=== PATIENT | female | born 1950 | race Hispanic/Latino ===

== ENCOUNTER 2017-09-21 06:47 | Day surgery (SDC) | payer MEDICARE ==
[2017-09-21] MEDS ORDERED: ZOFRAN ONE (07:34)
[2017-09-21] MEDS ORDERED: DIPRIVAN 10 MG/ML IV ONE (07:34)
--- NOTE | 2017-09-21 07:44 | Anesthesia Consultation ---
Anesthesia Consult and Med Hx Date of service: 09/21/17 - Airway Anesthetic Teeth Evaluation: Caps (right lower back ) ROM Head & Neck: Inadequate (anterior cervical sx) Mental/Hyoid Distance: Adequate Mallampati Class: Class II Intubation Access Assessment: Probably Good - Pulmonary Exam CTA: Yes - Cardiac Exam Cardiac Exam: RRR - Pre-Operative Health Status ASA Pre-Surgery Classification: ASA2 Proposed Anesthetic Plan: MAC - Endocrine Hx Hypothyroidism: Yes
--- NOTE | 2017-09-21 07:45 | Anesthesia Day of Surgery ---
Anesthesia Day of Surgery - Day of Surgery Patient Examined: Yes Patient H&P Reviewed: Yes Patient is NPO: Yes
[2017-09-21] MEDS ORDERED: NACL 0.9% 1000 ML 1,000 ML IV SCH (08:00)
--- NOTE | 2017-09-21 08:24 | Operative Report ---
Operative Report Operative Report: EGD Post bypass DATE: 09/21/17 OPERATIVE REPORT - EGD PREOP DIAGNOSIS: Epigastric pain POSTOP DIAGNOSIS: same, failed GJ SURGERY: Upper endoscopy. SURGEON: Dr. Scott Vela OPHTHALMIC TECHNOLOGIST: Ronnell Damon D.O TYPE OF ANESTHESIA: MAC. ESTIMATED BLOOD LOSS: None. COMPLICATIONS: None. SPECIMENS REMOVED: None. FINDINGS: 1. normal esophagus 2. gastric pouch - 40ml 3. gastrojejunal anastomosis is 20mm INDICATIONS:INDICATION FOR PROCEDURE: Patient is a 67-year-old F s/p gastric bypass in 2004. The patient is here today for EGD to evaluate her epigastric pain. PROCEDURE DETAILS: After consent was reviewed, patient was taken back to the operating room where patient was placed in the left lateral decubitus position and a bite block was placed in the mouth. After a time-out was called, MAC anesthesia was initiated. I then passed the endoscope into the patients oropharynx, into the esophagus, visualized the entire esophagus, which was all within normal limits. I then visualized the gastric pouch which was normal and about 40ml in size. The gastrojejunal anastomosis was normal at about 20mm. The proximal portion of the rex limb was normal. I did not visualize any ulcers or fistulas. I then desufflated the gastric pouch and removed the endoscope. Patient tolerated procedure well and was transferred to recovery room in good and stable condition
--- NOTE | 2017-09-21 08:25 | Discharge Summary ---
Providers - Providers Attending physician: GOLD WILCOX Hospitalization Procedures: egd Hospital course: 67 y.o. F with hx of lap gastric bypass presented to endoscopy for EGD. She tolerated the procedure well and was discharged home the same day. Disposition: DC-01 TO HOME OR SELFCARE Core Measure Documentation - Palliative Care Palliative Care/ Comfort Measures: Not Applicable - Core Measures Any of the following diagnoses?: none Exam - Physical Exam Narrative exam: no change from previous - Constitutional Vitals: Temp Pulse Resp BP Pulse Ox 98.2 F 67 12 129/78 99 09/21/17 07:41 09/21/17 07:41 09/21/17 07:41 09/21/17 07:41 09/21/17 07:41 Plan Activity: no restrictions Additional Instructions: follow up in office Follow up with: ELMER GUEVARA MD [Other] - 7 Days
[2017-09-21] MEDS ORDERED: WATER FOR IRRIG STERILE IR ONE ×2 (08:27)
[2017-09-21 09:25] VITALS: BP 119/77
== END 2017-09-21 06:48 | disposition home or self-care (01) ==
LOC: GIO 06:47
PROVIDERS: ATTEND Specialist
DX: R10.13 Epigastric pain (principal); E03.9 Hypothyroidism, unspecified; Z98.0 Intestinal bypass and anastomosis status; Z88.5 Allergy status to narcotic agent; Z98.84 Bariatric surgery status
CPT/HCPCS: 43235; J2405; J2704; J7030